=== PATIENT | male | born 1985 | race Caucasian/White ===

== ENCOUNTER → 2017-11-16 | Outpatient (CLI) | payer MEDICAID ==
[~2017-11-16] MED LIST: ARI2 PO; BUTA1CAP4 PO; CHOL10005 PO; DILT120C28 PO; IBUP800T37 PO; LAMO100T52 PO; LAMO100T56 PO; LOR5/325 PO; ZOLP-350 PO
[2017-11-16 08:24] LABS: INR 1.03
== END ==
LOC: LAB 07:43
PROVIDERS: ATTEND Internal Medicine
DX: Z01.818 Encounter for other preprocedural examination (principal)
CPT/HCPCS: 36415; 81001; 82310; 82374; 82435; 82565; 82947; 84132; 84295; 84520; 85027; 85610